=== PATIENT | male | born 1970 | race Caucasian/White ===

== ENCOUNTER 2016-12-09 09:21 | Observation (INO) | payer MEDICAID, OTHER ==
[2016-12-09 09:26] VITALS: RESP 16; TEMP 97
[2016-12-09 09:31] VITALS: O2SAT 98
--- NOTE | 2016-12-09 09:37 | ED PDOC ---
HPI: General Adult Time Seen by Provider: 12/09/16 09:27 Chief Complaint (Nursing): ENT Problem Chief Complaint (Provider): right ear pain History Per: Patient History/Exam Limitations: no limitations Additional Complaint(s): 46yo male comes to the ED complaining of 3 days of right ear pain and right side of throat. Able to swallow but with a lot of pain. No nausea, vomit, diarrhea, chest pain, shortness of breath, runny nose. PMD: Cristina Zamudoi Past Medical History Reviewed: Historical Data, Nursing Documentation, Vital Signs Vital Signs: Last Vital Signs Temp 97.0 F L 12/09/16 09:25 Pulse 86 12/09/16 09:25 Resp 16 12/09/16 09:25 BP 136/90 12/09/16 09:25 Pulse Ox 98 12/09/16 13:53 - Medical History PMH: Atrial Fibrillation, Bronchitis, HTN, Hyperlipidemia, Hypothyroidism Other PMH: sciatica, hemorrhoids, arthopathy, prostate disorder, - Family History Family History: States: Unknown Family Hx - Social History Current smoker - smoking cessation education provided: No Ex-Smoker (has not smoked in the last 12 months): Yes Alcohol: None Drugs: Denies - Home Medications Home Medications: Ambulatory Orders Medication Instructions Recorded Dicyclomine [Bentyl] 20 mg PO Q12 PRN #20 tab 04/03/15 Metronidazole [Flagyl] 500 mg PO Q12 #20 tab 04/03/15 - Allergies Allergies/Adverse Reactions: Allergies Allergy/AdvReac Type Severity Reaction Status Date / Time No Known Allergies Allergy Verified 12/09/16 09:29 Review of Systems ROS Statement: Except As Marked, All Systems Reviewed And Found Negative Constitutional: Negative for: Fever ENT: Positive for: Ear Pain, Throat Pain, Throat Swelling. Negative for: Nose Discharge Cardiovascular: Negative for: Chest Pain Respiratory: Negative for: Shortness of Breath Gastrointestinal: Negative for: Nausea, Vomiting, Diarrhea Physical Exam - Reviewed Nursing Documentation Reviewed: Yes Vital Signs Reviewed: Yes - Physical Exam Appears: Positive for: Well, Non-toxic, No Acute Distress Head Exam: Positive for: ATRAUMATIC, NORMAL INSPECTION, NORMOCEPHALIC Skin: Positive for: Warm, Dry Eye Exam: Positive for: EOMI, PERRL ENT: Positive for: TM Is/Are (normal bilaterally), Other (Right side pharynx swelling, erthythema, questionable exudates. No uvular deviation. ) Neck: Positive for: Normal, Painless ROM, Supple Cardiovascular/Chest: Positive for: Regular Rate, Rhythm Respiratory: Positive for: Normal Breath Sounds. Negative for: Rales, Rhonchi, Wheezing Gastrointestinal/Abdominal: Positive for: Soft. Negative for: Tenderness Back: Positive for: Normal Inspection. Negative for: L CVA Tenderness, R CVA Tenderness Extremity: Positive for: Normal ROM. 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 Spoke with Dr. Varela. Will see pt. in ER and do I and D. 1626: Stable. AAOx3. Pain free. Dr. Varela consult pending. Dr. Putnam to fu on Dr. Varela and dispo. ED OBSERVATION Date of observation admission: 12/09/16 Time of observation admission: 13:53 - Observation admission statement Patient is being placed in observation because:: peritonsillar abscess - Goals of Observation Goals of observation are:: ENT pending Disposition - Clinical Impression Clinical Impression: Peritonsillar abscess - Patient ED Disposition Is Patient to be Admitted: Transfer of Care - Disposition Disposition: Transfer of Care Disposition Time: 16:27 Condition: STABLE Additional Comments - Additional Comments Additional Comments: Scribe Attestation: Documented by Collin Angulo acting as a scribe for Jaimie Wilson MD. Provider Scribe Attestation: All medical record entries made by the Scribe were at my direction and personally dictated by me. I have reviewed the chart and agree that the record accurately reflects my personal performance of the history, physical exam, medical decision making, and the department course for this patient. I have also personally directed, reviewed, and agree with the discharge instructions and disposition.
[2016-12-09] MEDS ORDERED: Dexamethasone 10 MG in Sodium Chloride 0.9% 50 ML IVPB STA (09:48)
[2016-12-09] MEDS ORDERED: Sodium Chloride 0.9% 1,000 ML IV STA (10:50)
[2016-12-09 11:06] LABS: ALB/GLOB RATIO 1.1 (1.0-2.1); ALKALINE PHOSPHATASE 90 U/L (38-126); ALT/SGPT 45 U/L (21-72); AST/SGOT 33 U/L (17-59); BLOOD UREA NITROGEN 14 mg/dl (9-20); CALCIUM 9.8 mg/dL (8.4-10.2); CARBON DIOXIDE 26 mmol/L (22-30); CHLORIDE 103 mmol/L (98-107); GFR AFRICAN-AMERICAN > 60; GLUCOSE,RANDOM 106 mg/dL (75-110); POTASSIUM 4.2 MMOL/L (3.6-5.0); SODIUM 144 mmol/l (132-148); TOTAL PROTEIN 7.9 G/DL (6.3-8.2)
[2016-12-09 11:12] LABS: BASO # 0.1 K/uL (0.0-0.2); BASO % 0.9 % (0.0-2.0); EOS # 0.2 K/uL (0.0-0.7); EOS % 1.4 % (0.0-4.0); HEMATOCRIT 47.8 % (35.0-51.0); LYMPH % 18.4 % (20.0-40.0); MEAN CORPUSCULAR HEMOGLOBIN 22.7 pg (27.0-31.0); MEAN PLATELET VOLUME 8.1 fl (7.2-11.7); MONO % 8.8 % (0.0-10.0); NEUT # 7.6 K/uL (1.8-7.0); NEUT % 70.5 % (50.0-75.0); NRBC % 0.3 % (0.0-0.0); RED CELL DISTRIBUTION WIDTH 15.7 % (11.5-14.5); WHITE BLOOD COUNT 10.8 K/uL (4.8-10.8)
[2016-12-09 11:17] LABS: PARTIAL THROMBOPLASTIN TIME 29.6 SECONDS (23.3-32.5)
[2016-12-09] MEDS ORDERED: Iohexol 300 100 ML IJ ONE (12:25)
[2016-12-09] MEDS ORDERED: Sodium Chloride 0.9% 50 ML IV ONE (12:25)
--- NOTE | 2016-12-09 13:26 | CT ---
PROCEDURE: CT NECK WITH CONTRAST HISTORY: eval for peritonsillar abscess COMPARISON: None TECHNIQUE: CT of the neck with intravenous contrast. Coronal and sagittal reformats generated. Intravenous contrast dose: 95 cc Omnipaque 300 Radiation dose: DLP 473.21 mGy-cm This CT exam was performed using one or more of the following dose reduction techniques: Automated exposure control, adjustment of the mA and/or kV according to patient size, and/or use of iterative reconstruction technique. FINDINGS: NASOPHARYNX: Unremarkable. SUPRAHYOID NECK: Probable abscess, right peritonsillar. The low-attenuation region measures 1.1 x 1.9 cm. There is general enlargement of the right palatine tonsil. There is some mass effect on the airway without airway narrowing. The left palatine tonsil and lingual tonsillar unremarkable. There is prominence of the adenoidal tonsils. Cannot entirely rule out necrotic neoplasm. Please correlate clinically. INFRAHYOID NECK: Unremarkable larynx, hypopharynx, and supraglottic space. Vocal cords intact. MASS: None. GLANDS: Parotid and submandibular glands unremarkable. Normal size thyroid gland, without nodule. LYMPH NODES: Shotty level 1 and 2 nodes. Mildly enlarged right level 2 node, 1.6 cm short axis. Likely reactive. No other frankly enlarged lymph nodes. . CERVICAL SPINE: No fracture or focal lesion. VASCULAR STRUCTURES: Unremarkable. OTHER FINDINGS: None. IMPRESSION: Right peritonsillar abscess. No evidence of airway compromise at this time. Cannot entirely rule out necrotic neoplasm. Clinical correlation and follow-up. No significant lymphadenopathy. Prominence of the adenoidal tonsils common nonspecific. No other significant abnormality.
[2016-12-09] MEDS ORDERED: Lidocaine 2% w Epi 1:100,000 Inj IJ ONE (13:54)
[2016-12-09 19:45] VITALS: BP 132/70; PULSE 78
--- NOTE | 2016-12-10 00:01 | OP ---
PROCEDURE DATE: 12/09/2016 PREOPERATIVE DIAGNOSIS: Peritonsillar abscess. POSTOPERATIVE DIAGNOSIS: Peritonsillar abscess. PROCEDURE: Incision and drainage of peritonsillar abscess. SIGNIFICANT FINDINGS: Peritonsillar abscess. DESCRIPTION OF PROCEDURE: The patient was placed in a seated position. The right peritonsillar area was injected with lidocaine with epinephrine. A #11 blade was used to make an incision in the right peritonsillar area. Blunt dissection was done. Pus was noted coming out. Bleeding was controlled with time. The patient tolerated procedure well. Minor Varela MD cc: [phone] TT: 12/10/2016 00:01:08 mn
[2016-12-10 09:08] LABS: VENOUS BLOOD GAS BASE EXCESS 2.6 mmol/L (0.0-2.0); VENOUS BLOOD GAS PCO2 41 mmHg (40-60); VENOUS BLOOD PH 7.43 (7.32-7.43)
== END 2016-12-09 17:35 | disposition home or self-care (01) ==
LOC: H.ER 09:21 → H.EROBSV 09:52
PROVIDERS: ADMIT Emergency Medicine; ATTEND Emergency Medicine
DX: J36 Peritonsillar abscess (principal); I48.91 Unspecified atrial fibrillation; I10 Essential (primary) hypertension; E78.5 Hyperlipidemia, unspecified; E03.9 Hypothyroidism, unspecified; Z87.891 Personal history of nicotine dependence